=== PATIENT | male | born 2005 | race Two or more races ===

== ENCOUNTER 2024-08-22 10:15 | Emergency (ER) | payer MEDICAID, SELFPAY ==
[2024-08-22 10:26] VITALS: BP 145/85; PULSE 95; TEMP 36.7; O2SAT 96; BMI 48.8
--- NOTE | 2024-08-22 10:30 | XR_ITS ---
Examination: Thoracic spine 3 views Technique one AP lateral coned lateral upper dorsal spine 3 views Date and time: August 22, 2024 1039 hours INDICATIONS: Lifting injury to the back December 2023 followed by back pain FINDINGS: No acute thoracic fracture Mild wedging T12 and T11 Mild to moderate diffuse thoracic degenerative disc disease IMPRESSION: No acute thoracic fracture Mild to moderate diffuse thoracic degenerative disc disease
--- NOTE | 2024-08-22 10:30 | XR_ITS ---
Examination: Lumbar spine 3 views Technique one AP lateral coned lateral lower lumbar spine 3 views Date and time: June 14, 2024 1046 hours INDICATIONS: Lifting injury December 2023 followed by low back pain FINDINGS: Adequate alignment lumbar vertebral bodies on the lateral view No acute lumbar fracture Minimal chronic wedging T12 Diffuse tldz-me-dvmadlhk lumbar disc narrowing, most prominent L3-L4, L5-S1 IMPRESSION: No lumbar fracture Diffuse apar-or-qaqdnkch lumbar degenerative disc disease, most prominent L3-L4, L5-S1
--- NOTE | 2024-08-22 10:31 | EDNOTE_ITS ---
<Statement entered by Salma Chao MD - 08/22/24 16:58> As co-signing physician, I was present and available for consult prn. I concur with the plan and care as documented by the midlevel provider. ED Back Injury Pain RME/HPI General Chief Complaint: Back Pain/Injury Stated Complaint: LOWER BACK PAIN X APRIL Time Seen by Provider: 08/22/24 10:20 Source: patient Arrival date/time: 08/22/24 10:15 18-year-old male with no known medical history presents to the emergency room with a chief complaint of lower back pain x 3 months Mode of arrival: ambulatory Limitations: no limitations Related Data Allergies Allergy/AdvReac Type Severity Reaction Status Date / Time No Known Allergies Allergy Verified 08/22/24 10:17 Review of Systems Review of Systems Systems Reviewed: All systems reviewed, normal except as documented Constitutional Constitutional: Reports system reviewed and no additional complaints, except as documented, Denies fatigue, Denies fever(s), Denies headache(s) and Denies weakness Eyes Eyes: Reports system reviewed and no additional complaints, except as documented, Denies blurry vision and Denies change in vision ENT Ears, Nose, Mouth, and Throat: Reports system reviewed and no additional complaints, except as documented, Denies otalgia, Denies headache(s), Denies nasal congestion, Denies throat swelling and Denies vertigo Cardiovascular Cardiovascular: Reports system reviewed and no additional complaints, except as documented, Denies chest pain, Denies dyspnea and Denies dyspnea on exertion Respiratory Respiratory: Reports system reviewed and no additional complaints, except as doc umented, Denies chest congestion, Denies cough, Denies dyspnea, Denies dyspnea on exertion and Denies wheezing Gastrointestinal Gastrointestinal: Reports system reviewed and no additional complaints, except as documented, Denies abdominal pain, Denies cramping, Denies nausea and Denies vomiting Genitourinary Genitourinary: Reports system reviewed and no additional complaints, except as documented, Denies dysuria and Denies hematuria Musculoskeletal Musculoskeletal: Reports system reviewed and no additional complaints, except as documented, Reports abnormal gait, Reports arthralgias and Denies back pain Integumentary/Breasts Skin/Breast: Reports system reviewed and no additional complaints, except as documented and Denies wounds Neurologic Neurologic: Reports system reviewed and no additional complaints, except as documented, Reports abnormal gait, Denies confusion, Denies headache(s), Denies lack of coordination, Denies vertigo and Denies weakness Psychiatric Psychiatric: Reports system reviewed and no additional complaints, except as documented, Denies anxiety, Denies confusion, Denies depression, Denies paranoia, Denies suicidal ideation and Denies tactile hallucinations Endocrine Endocrine: Reports system reviewed and no additional complaints, except as documented and Denies fatigue Hematologic/Lymphatic Hematologic/Lymphatic: Reports system reviewed and no additional complaints, ex cept as documented and Denies lymphadenopathy Allergic/Immunologic Allergic/Immunologic: Reports system reviewed and no additional complaints, except as documented, Denies throat swelling, Denies urticaria and Denies wheezing Past Medical History Social History SMOKING STATUS: Never smoker ED Exam General Limitations: Present no limitations General appearance: Present alert and in no apparent distress Head Head exam: Present atraumatic Eye Eye exam: Present normal appearance, PERRL and EOMI ENT ENT exam: Present normal exam, normal oropharynx and mucous membranes moist Neck Neck exam: Present normal inspection, full ROM and trachea midline Chest Chest inspection: Present normal inspection and symmetric chest wall rise Respiratory Respiratory exam: Present normal lung sounds bilaterally Cardiovascular Cardiovascular exam: Present regular rate, normal rhythm and normal heart sounds Abdominal Exam Abdominal exam: Present soft and normal bowel sounds Extremities Exam Extremities exam: Present normal inspection and full ROM Back Exam Back exam: Present normal inspection, full ROM and vertebral tenderness; Absent CVA tenderness (R), CVA tenderness (L), sciatic notch tenderness (R) or sciatic notch tenderness (L) Neurological Exam Neurological exam: Present alert, oriented X3 and CN II-XII intact Psychiatric Psychiatric exam: Present normal affect and normal mood Skin Skin exam: Present warm, dry, intact and normal color Course Quality Measures none Orders Category Date Time Status XR lumbar spine 2-3V Stat Exams 08/22/24 10:30 Completed XR thoracic spine 3V Stat Exams 08/22/24 10:30 Completed CYCLObenzaPRINE [Flexeril] Med 08/22/24 10:30 Discontinued 10 mg PO X1 ONE Ketorolac Inj [Toradol Inj] Med 08/22/24 10:30 Discontinued 30 mg IM X1 ONE Vital Signs Vital signs: Vital Signs Temperature 98.0 F 08/22/24 10:26 Pulse Rate 95 08/22/24 10:26 Blood Pressure 145/85 H 08/22/24 10:26 Pulse Oximetry (%) 96 08/22/24 10:26 Oxygen Delivery Method Room Air 08/22/24 10:26 O2 saturation 96% within normal limits Back Pain / Injury MDM Narrative MDM Narrative:: 18-year-old male with no known medical history presents to the emergency room with a chief complaint of lower back pain x 3 months Patient is hemodynamically stable and in no apparent distress Physical examination shows tenderness and pain to the patient's thoracic and lumbar area of the patient's spine. Patient denies any saddle anesthesia or any numbness to the lower extremities. Patient denies any loss of bowel or bladder function X-ray thoracic spine and lumbar spine were negative for any acute fracture or dislocation. The x-ray of the lumbar spine did find some degenerative disc disease Patient was discharged and educated to follow-up with primary care provider in the next 24 to 48 hours and return to the emergency room for any evidence of worsening signs or symptoms Patient data External records reviewed:: [facility] previous records Clinical information provided by:: patient Social determinants that could affect healthcare access:: none Patient has the following chronic illnesses:: No chronic illness How is presenting disease/condition affected by chronic disease/condition?: no chronic disease Evaluation data The following diagnostics were reviewed and interpreted by me:: lab results and radiology exam(s) Lab and/or radiology exams considered but not ordered:: Labs and radiology exams considered and ordered Interpretation Summary: Lumbar spine [id number]: Adequate alignment lumbar vertebral bodies on the lateral view No acute lumbar fracture Minimal chronic wedging T12 Diffuse fnhb-ty-udxmgnxd lumbar disc narrowing, most prominent L3-L4, L5-S1 IMPRESSION: No lumbar fracture Diffuse loul-ck-xmqepnvp lumbar degenerative disc disease, most prominent L3-L4, L5-S1 Thoracic spine [id number]: No acute thoracic fracture Mild wedging T12 and T11 Mild to moderate diffuse thoracic degenerative disc disease IMPRESSION: No acute thoracic fracture Mild to moderate diffuse thoracic degenerative disc disease Medications / Prescriptions Medications or Prescriptions considered but not ordered:: Medication given Medication administrations:: Medication Administration History Discontinued Medications Cyclobenzaprine HCl (Cyclobenzaprine 5 Mg Tablet) 10 mg PO X1 ONE Stop: 08/22/24 10:31 Last Admin: 08/22/24 10:52 Dose: 10 mg Documented By: OA Ketorolac Tromethamine (Ketorolac Inj 60 Mg/2 Ml Vial) 30 mg IM X1 ONE Stop: 08/22/24 10:31 Last Admin: 08/22/24 10:51 Dose: 30 mg Documented By: OA Medication given Consultations Consultation(s) initiated? (list below): No Diagnosis Differential diagnosis back pain/injury: lumbar radiculopathy, strain of lumbar region, thoracic back pain, discitis and other (Degenerative disc disease) Most likely diagnosis given after review of the tests above:: Degenerative disc disease Admission Indicated Admission indicated?: not indicated Admission Request Was there a request for admission?: No Disposition Plan Disposition Plan: Discharge Discharge Attestation Discharge Attestation: The patient and all family members were given an opportunity to ask questions and understood the discharge instructions. Discharge instructions specifically effects, indications for sooner follow up or return to the emergency department, and the expected course of current diagnosis. Patient condition: Stable Discharge Plan Plan Patient Disposition: HOME (Self Care) Discharge Disposition comment: Stable Prescriptions/Referrals Referrals: No Primary/Family,Physician [Primary Care Provider] - In 1 week Problem List Clinical Impression: Strain of lumbar region, Degenerative disc disease Patient/Caregiver Discharge Instructions Education Materials: ED Back Sprain/Strain Additional Instructions: Please follow-up with your primary care provider in the next 24 to 48 hours X-rays of your lumbar spine and thoracic spine were completed and were negative for any acute fracture or dislocation. The x-ray showed some degenerative disc disease. Which is a deterioration of the discs in between her spine. Please follow-up with your primary care provider for further management of this condition For any evidence of worsening signs or symptoms return emergency room immediately Print Language: Vietnamese Stand Alone Forms: Alis Award Info., Work/School Release, Patient Portal Info Letter SHASHI/SAMM Supervising Physician SHASHI/SAMM Supervising Physician: Dr. CHAO
[2024-08-22] MEDS: KETOROLAC INJ 60 MG/2 ML VIAL 30 MG IM (10:51)
[2024-08-22] MEDS: CYCLObenzaPRINE 5 MG TABLET 10 MG PO (10:52)
== END 2024-08-22 12:02 | disposition home or self-care (01) ==
PROVIDERS: Emergency Provider Emergency Medicine
DX: S39.012A Strain of muscle, fascia and tendon of lower back, initial encounter (principal); M51.360 Other intervertebral disc degeneration, lumbar region with discogenic back pain only; M48.54XA Collapsed vertebra, not elsewhere classified, thoracic region, initial encounter for fracture; M51.34 Other intervertebral disc degeneration, thoracic region; X50.9XXA Other and unspecified overexertion or strenuous movements or postures, initial encounter
CPT/HCPCS: 72072; 72100; 96372; 99283; J1885; A9270